=== PATIENT | male | born 1985 | race Hispanic/Latino ===

== ENCOUNTER 2022-03-11 06:59 | Emergency (ER) | payer BC ==
[2022-03-11] MEDS ORDERED: Iopamidol 370 76% 100 ML VIAL FS ONE (07:00)
[2022-03-11] MEDS ORDERED: Ibuprofen 800 MG TAB ONE (07:19)
[2022-03-11 07:32] LABS: Hemoglobin 13.5 g/dL (14.0-18.0); Mean Corpuscular Hemoglobin 33.4 pg (27.0-31.0); Mean Corpuscular Volume 90.3 fL (78.0-98.0); Mean Platelet Volume 6.2 fL (7.4-10.4); Platelet Count 193 thou/uL (130-400); RBC Distribution Width 11.1 % (11.5-14.5); Red Blood Cell (RBC) Count 4.04 mill/uL (4.70-6.10); White Blood Cell (WBC) Count 4.5 thou/uL (4.8-10.8)
[2022-03-11 07:37] LABS: Bilirubin Negative (Negative); Blood, Urine Moderate (Negative); Glucose, Urine (Dipstick) Negative (Negative); Ketone, Urine Negative (Negative); Leukocyte Negative (Negative); Nitrite Negative (Negative); Protein, Urine (Dipstick) Negative (Neg-Trace); pH, Urine 5.5 (5.0-9.0)
[2022-03-11 07:41] LABS: Clarity Slightly Cloudy (Clear)
[2022-03-11 07:43] LABS: ALT (SGPT) 27 U/L (8-55); AST (SGOT) 28 U/L (5-34); Albumin 4.4 g/dL (3.5-5.0); Alkaline Phosphatase 72 U/L (40-110); Anion Gap 15 mmol/L (10-20); BUN (Urea Nitrogen) 10 mg/dL (8.9-20.6); Bilirubin, Total 0.5 mg/dL (0.2-1.2); Calc. Creatinine Clearance 0 mL/min (70-130); Calcium 8.8 mg/dL (7.8-10.44); Carbon Dioxide 24 mmol/L (22-29); Chloride 103 mmol/L (98-107); Globulin 2.7 g/dL (2.4-3.5); Glucose 82 mg/dL (70-105); Potassium 3.8 mmol/L (3.5-5.1); Protein, Total 7.1 g/dL (6.0-8.3); Sodium 138 mmol/L (136-145)
[2022-03-11 07:48] LABS: Mean Corpuscular HGB CONC 36.4 g/dL (32.0-36.0)
[2022-03-11 07:53] LABS: Bacteria/HPF Rare-Few HPF (None Seen); Squamous Epithelial 0-3 HPF (0-3); WBC/HPF 0-3 HPF (0-3)
[2022-03-11 08:00] LABS: Band 5 % (5-11); Eosinophils 2 % (0-10); Lymphocytes 11 % (21-51); Monocytes 11 % (0-10); Neutrophil 71 % (42-75)
[2022-03-11 08:13] LABS: MDiff Complete? YES
== END 2022-03-11 08:20 | disposition home or self-care (01) ==
LOC: BURERS 06:59
DX: R10.9 Unspecified abdominal pain (principal)
CPT/HCPCS: 36415; 74177; 80053; 81003; 81015; 83605; 85025; 87040; 87086; 96360; Q9967